=== PATIENT | female | born 1965 | race Caucasian/White ===

== ENCOUNTER 2017-01-05 16:38 | Emergency (ER) | payer OTHER ==
[~2017-01-05] VITALS: Ht 152.4 cm; Wt 124.6 kg
[~2017-01-05 16:38] MED LIST: ADVIN25050 INH; ATV5 PO; CELE50CA PO; CRDCD120 PO; VNTHFA/IN INH
[2017-01-05 16:47] VITALS: TEMP 37; Ht 152.4 cm; Wt 124.6 kg
[2017-01-05] MEDS ORDERED: ALUMINUM/MAGNESIUM SUSP 30 ML UDC PO STA (17:48)
[2017-01-05] MEDS ORDERED: ATV5X PO (18:00)
[2017-01-05] MEDS ORDERED: DILT60CA PO (18:00)
--- NOTE | 2017-01-05 18:15 | EMERGENCY ROOM VISIT NOTE ---
History Report prepared by [place]: Kaylyn Mccallum Under the Supervision of: Dr. Lalit Recinos M.D. First contact with patient: 17:39 Chief Complaint: HYPERTENSION Stated Complaint: HIGH BLOOD PRESSURE, INDIGESTION AND HEADACHE History of Present Illness The patient is a 51 year old female who presents to the Emergency Room with complaints of waxing and waning mid-chest pressure starting yesterday. She describes it to be similar to indigestion symptoms. She had the onset of her pain about 3 hours after she ate a cup of vegetable soup. She continues to have the pressure today but has only had a bagel today. She took Rolaids without relief. She denies any changes in her symptoms with any activity. At its worst, she rates a symptom intensity of 7/10. She currently rates a symptom intensity of 1/10. She reports some heavy breathing but denies shortness of breath. She had some nausea yesterday but denies vomiting. The patient also complains of hypertension. Yesterday, her blood pressure was 176/116. She has a history of hypertension. Her diltiazem dose was reduced in November. Her blood pressure was normal this morning. She currently also complains of a headache. She was referred to the Emergency Room by her PCP. She has a family history of heart disease and hypertension. She denies any history of frequent indigestion. She had a resting stress test in October with normal results. Source of History: patient Onset: yesterday Position: chest (mid) Symptom Intensity: 1/10 currently Quality: pressure Timing: waxes/wanes Modifying Factors (Relieving): other (Rolaids without relief) Associated Symptoms: + headache, + nausea, No SOB, No vomiting Review of Systems See HPI for pertinent positives & negatives. A total of 10 systems reviewed and were otherwise negative. Past Medical & Surgical Medical Problems: (1) Asthma (2) Kidney disease (3) Paroxysmal SVT (supraventricular tachycardia) (4) possibel NSTEMI, HTN Surgical Problems: (1) S/P hysterectomy Family History Patient reports no known family medical history. Social History Smoking Status: Never Smoker Alcohol Use: none Drug Use: none Marital Status: Housing Status: lives with significant other Occupation Status: employed Current/Historical Medications Scheduled Diltiazem Hcl (Diltiazem Hcl Er), 60 MG PO QAM Pantoprazole (Protonix), 20 MG PO DAILY Ranitidine (Zantac), 150 MG PO BID Scheduled PRN Albuterol Hfa (Ventolin Hfa), 2-4 PUFFS INH Q6H PRN for SOB/Wheezing Lorazepam (Lorazepam), 0.5 MG PO TID PRN for Anxiety Allergies Coded Allergies: Sulfa Drugs (Verified Allergy, Unknown, UNKNOWN - SINCE 1979, 01/05/17) Physical Exam Vital Signs Date Time Temp Pulse Resp B/P Pulse Ox O2 Delivery O2 Flow Rate FiO2 01/05/17 19:56 80 20 152/104 93 Room Air 01/05/17 18:33 89 21 156/92 99 Room Air 01/05/17 18:31 99 Room Air 01/05/17 16:47 37.0 89 18 134/80 94 Room Air Physical Exam GENERAL: Patient is in no acute distress. HEENT: No acute trauma, normocephalic atraumatic, mucous membranes moist, no nasal congestion, no scleral icterus. NECK: No stridor, no adenopathy, no meningismus, trachea is midline. LUNGS: Clear to auscultation bilaterally, no wheeze, no rhonchi, breath sounds equal. HEART: Without murmurs gallops or rubs, regular rate and rhythm. ABDOMEN: Soft, tenderness in the epigastrium and right upper quadrant, bowel sounds positive, no hernias, no peritonitis. EXTREMITIES: No cyanosis or edema, full range of motion of all the joints without pain or difficulty, no signs for acute trauma. NEUROLOGIC: Oriented x 3, no acute motor or sensory deficits, no focal weakness. SKIN: No rash, no jaundice, no diaphoresis. Medical Decision & Procedures ER Provider Diagnostic Interpretation: X ray results and stated below per my interpretation and radiologist interpretation. US results and stated below per my review and radiologist interpretation: ABDOMINAL ULTRASOUND, RIGHT UPPER QUADRANT HISTORY: Epigastric abdominal pain.. COMPARISON: Abdomen and pelvis CT 07/10/2007. FINDINGS: Pancreas: The pancreatic tail is obscured by overlying bowel gas. The remaining portions of the pancreas are within normal limits. Liver: Unremarkable. Gallbladder: No gallbladder wall thickening. No gallstones. CBD: 4 mm. Right kidney: No hydronephrosis. IMPRESSION: No significant abnormality identified within the right upper quadrant. Electronically signed by: Chino Casper M.D. 01/05/2017 7:14 PM Dictated Date/Time: 01/05/2017 7:13 PM CHEST ONE VIEW PORTABLE HISTORY: Atypical CHEST PAIN COMPARISON: Chest 10/18/2016. FINDINGS: The cardiac silhouette is mildly enlarged. The lungs are clear. No pleural effusions. No pneumothorax. No acute rib fractures. IMPRESSION: Mild cardiomegaly. Electronically signed by: Chino Casper M.D. 01/05/2017 6:38 PM Dictated Date/Time: 01/05/2017 6:38 PM Laboratory Results 01/05/17 18:20 01/05/17 18:20 Test 01/05/17 18:20 Red Blood Count 4.23 M/uL (4.2-5.4) Mean Corpuscular Volume 86.3 fL (80-100) Mean Corpuscular Hemoglobin 30.0 pg (25-34) Mean Corpuscular Hemoglobin Concent 34.8 g/dl (32-36) RDW Standard Deviation 41.9 fL (36.4-46.3) RDW Coefficient of Variation 13.3 % (11.5-14.5) Mean Platelet Volume 10.4 fL (7.4-10.4) Prothrombin Time 10.1 SECONDS (9.0-12.0) Prothromb Time International Ratio 0.9 (0.9-1.1) Activated Partial Thromboplast Time 27.3 SECONDS (21.0-31.0) Partial Thromboplastin Ratio 1.1 Anion Gap 8.0 mmol/L (3-11) Est Creatinine Clear Calc Drug Dose 89.0 ml/min Estimated GFR () 85.8 Estimated GFR (Non- 74.0 BUN/Creatinine Ratio 13.9 (10-20) Calcium Level 8.8 mg/dl (8.5-10.1) Total Bilirubin 0.3 mg/dl (0.2-1) Aspartate Amino Transf (AST/SGOT) 13 U/L (15-37) Alanine Aminotransferase (ALT/SGPT) 18 U/L (12-78) Alkaline Phosphatase 88 U/L (45-117) Total Creatine Kinase 61 U/L (26-192) Creatine Kinase MB 0.6 ng/ml (0.5-3.6) Creatine Kinase MB Ratio 1.0 (0-3.0) Troponin I < 0.015 ng/ml (0-0.045) Total Protein 7.3 gm/dl (6.4-8.2) Albumin 3.2 gm/dl (3.4-5.0) Globulin 4.1 gm/dl (2.5-4.0) Albumin/Globulin Ratio 0.8 (0.9-2) Lipase 181 U/L (73-393) Laboratory results reviewed by me. Medications Administered Medications (Trade) Dose Ordered Sig/Odalys Route Start Time Stop Time Status Last Admin Dose Admin Al Hydroxide/Mg Hydroxide (Maalox Susp) 30 ml NOW STAT PO 01/05/17 17:48 01/05/17 17:52 DC 01/05/17 18:35 30 ML ECG Indication: chest pain Rate (beats per minute): 87 Rhythm: normal sinus Findings: no acute ischemic change, no ectopy ED Course 1738: The patient was evaluated in room C05. A complete history and physical exam was performed. 1747: Maalox Susp 30 ml PO 1927: Reevaluated the patient. Discussed results and discharge instructions: She verbalized understanding and agreement. The patient is ready for discharge. 1942: Protonix Tab 40 mg PO, Ranitidine HCl 150 mg PO Medical Decision Differential diagnosis includes but is not limited to cardiac ischemia, angina, myocardial infarction, biliary colic, pancreatitis, musculoskeletal pain, aortic dissection, PE. There is no leukocytosis or concerning anemia. No significant electrolyte abnormality, kidney failure or hepatitis. There is no pancreatitis. Chest x- ray does not show pneumonia or CHF, some mild cardiomegaly was seen. EKG shows a normal sinus rhythm, no acute ischemia. Cardiac enzyme testing 1 is not consistent with acute cardiac injury. Gallbladder ultrasound shows no gallstones and no acute cholecystitis. The patient presents with some hypertension yesterday which seems to have resolved today. She's had some heartburn-like symptoms since eating yesterday. The pain is nonexertional, the pain comes and goes on its own. She had a negative stress test just a few months ago. She was seen by cardiology and it was felt that her symptoms were not secondary to coronary disease. The patient received oral Maalox with no real change in her symptoms. She was given oral Zantac and oral Protonix. The patient presents with atypical lower chest pain. She does have discomfort with palpation of the epigastrium. This all may be stomach related discomfort. I am going to place her on Zantac and Protonix. She will follow with her doctor this week for a repeat blood pressure check in the office and a repeat exam. She has agreed to return to this ER for worsening chest discomfort, she will return for any exertional chest pain or exertional dyspnea. She does feel comfortable with discharge. Impression Primary Impression: Central chest pain Additional Impression: Hypertension Scribe Attestation The scribe's documentation has been prepared under my direction and personally reviewed by me in its entirety. I confirm that the note above accurately reflects all work, treatment, procedures, and medical decision making performed by me. Departure Information Dispostion Home / Self-Care Prescriptions Pantoprazole (Protonix) 20 Mg Tab 20 MG PO DAILY, #30 TAB Prov: Lalit Recinos M.D. 01/05/17 Ranitidine (Zantac) 150 Mg Tab 150 MG PO BID for 14 Days, #28 TAB Prov: Lalit Recinos M.D. 01/05/17 Referrals Kaitlynn Fournier M.D. (PCP) Forms HOME CARE DOCUMENTATION FORM, IMPORTANT VISIT INFORMATION, WORK / SCHOOL INSTRUCTIONS Patient Instructions My [facility] [place] [facility] Additional Instructions start zantac 2x per day for 2 weeks use protonix daily for 1 month bland diet---crackers, soup, gatorade rest see reyes moreno this week---call in the am for an appt return for worsening symptoms or exertional symptoms as we discussed heart testing today was all ok Problem Qualifiers
[2017-01-05 18:31] VITALS: O2SAT 99
[2017-01-05 18:31] LABS: HEMATOCRIT 36.5 % (37-47); MEAN CELL VOLUME 86.3 fL (80-100); MEAN CORPUSCULAR HGB CONC 34.8 g/dl (32-36); MEAN PLATELET VOLUME 10.4 fL (7.4-10.4); PLATELET COUNT 249 K/uL (130-400); RED BLOOD COUNT 4.23 M/uL (4.2-5.4); WHITE BLOOD COUNT 9.54 K/uL (4.8-10.8)
--- NOTE | 2017-01-05 18:40 | DIAGNOSTIC IMAGING REPORT ---
CHEST ONE VIEW PORTABLE HISTORY: Atypical CHEST PAIN COMPARISON: Chest 10/18/2016. FINDINGS: The cardiac silhouette is mildly enlarged. The lungs are clear. No pleural effusions. No pneumothorax. No acute rib fractures. IMPRESSION: Mild cardiomegaly. Electronically signed by: Chino Casper M.D. 01/05/2017 6:38 PM Dictated Date/Time: 01/05/2017 6:38 PM
[2017-01-05 18:49] LABS: INR 0.9 (0.9-1.1); PARTIAL THROMBOPLASTIN RATIO 1.1; PROTHROMBIN TIME (PATIENT) 10.1 SECONDS (9.0-12.0)
[2017-01-05 18:50] LABS: ALT/SGPT 18 U/L (12-78); AST/SGOT 13 U/L (15-37); BLOOD UREA NITROGEN 12 mg/dl (7-18); BUN/CREATININE RATIO 13.9 (10-20); CALCIUM 8.8 mg/dl (8.5-10.1); CARBON DIOXIDE 28 mmol/L (21-32); CHLORIDE 106 mmol/L (98-107); CREATININE 0.89 mg/dl (0.60-1.20); GLUCOSE 85 mg/dl (70-99); POTASSIUM 4.1 mmol/L (3.5-5.1); SODIUM 142 mmol/L (136-145)
[2017-01-05 18:55] LABS: ALB/GLOB RATIO 0.8 (0.9-2); ALKALINE PHOSPHATASE 88 U/L (45-117)
--- NOTE | 2017-01-05 19:15 | DIAGNOSTIC IMAGING REPORT ---
ABDOMINAL ULTRASOUND, RIGHT UPPER QUADRANT HISTORY: Epigastric abdominal pain.. COMPARISON: Abdomen and pelvis CT 07/10/2007. FINDINGS: Pancreas: The pancreatic tail is obscured by overlying bowel gas. The remaining portions of the pancreas are within normal limits. Liver: Unremarkable. Gallbladder: No gallbladder wall thickening. No gallstones. CBD: 4 mm. Right kidney: No hydronephrosis. IMPRESSION: No significant abnormality identified within the right upper quadrant. Electronically signed by: Chino Casper M.D. 01/05/2017 7:14 PM Dictated Date/Time: 01/05/2017 7:13 PM
[2017-01-05] MEDS ORDERED: RANITIDINE HCL 150 MG TAB PO STA (19:43)
[2017-01-05] MEDS ORDERED: PANTOprazole SOD 40 MG TAB PO STA (19:43)
[2017-01-05] MEDS ORDERED: ZNTT/150 PO (19:47)
[2017-01-05] MEDS ORDERED: PRT/20 PO (19:47)
[2017-01-05 19:56] VITALS: BP 142/103; PULSE 80; O2SAT 93
== END 2017-01-05 20:05 | disposition home or self-care (01) ==
LOC: C.EDB 16:39 → C.EDC 20:05
DX: R07.9 Chest pain, unspecified (principal); I10 Essential (primary) hypertension; Z82.49 Family history of ischemic heart disease and other diseases of the circulatory system; J45.909 Unspecified asthma, uncomplicated; N28.9 Disorder of kidney and ureter, unspecified; I47.1 Supraventricular tachycardia; Z90.710 Acquired absence of both cervix and uterus; Z88.2 Allergy status to sulfonamides; I51.7 Cardiomegaly

== ENCOUNTER → 2017-03-22 | Outpatient (CLI) | payer OTHER ==
[~2017-03-22] MED LIST changes: -ADVIN25050 INH; -ATV5 PO; +ATV5X PO; -CELE50CA PO; -CRDCD120 PO; +DILT60CA PO; +PRT/20 PO
--- NOTE | 2017-03-23 06:32 | PAP/PSG TECHNICIAN REPORT ---
[facility] Pin Maker Polysomnogram Report Study name: None Report date: 03/23/2017 Study date: 03/22/2017 Referring Physician: Name: JAIME NGUYEN Interpreting Physician: John Garcia M.D. Date of : 1965 Pin Maker: Deborah Gay [facility]. Sex: Female Age: 51 Study Type: PSG PAP Weight: 270 lbs 16.5 in Height: 51 years, Height 5' 0" Neck Circum: BMI: 52.73 Medications: ATIVAN 0.5 MG, [id number] MG, IBUPROFEN 800 MG, PROAIR HFA Patient History 51 yr-old female here for a CPAP update study. She was found to be positive for CLAY with an AHI of 21. She was then placed on an auto CPAP machine since November. She is still having trouble with daytime sleepiness, snoring, and mask leak. She was given an AirFit F20 full face mask size small. The test was started on room air and 4 CMH2O. ETCO2 testing was not utilized during this study. Room 1 Parameters Monitored NPSG: E1-M2, E2-M1, Fp1-M2, Fp2-M1, F3-M2, F4-M2, F4-M1, C3-M2, C4-M2, C4-M1, O1-M2, O2-M2, O2-M1, T3-M2, T4-M1, P3-M2, P4-M1, CHIN1, CHIN2, HR, EKG, Legs, PFLOW, SNOR, FLOW, CFLOW, Tidal Volume, THOR, ABDO, SpO2, PLTH, CPRESS, ETCO2 Wave, ETCO2, pH Sleep Architecture Sleep Stages Time at Lights Off 10:41:40 PM STAGES Time (min.) TST (%) Time at Lights On 5:39:40 AM Wake 26.5 -- Total Recording Time (TRT) 418.00 min. N1 19.0 5 Total Sleep Period (TSP) 414.0 min. N2 261.0 67 Total Sleep Time (TST) 391.5min. N3 37.5 10 Awake Time 26.5 min. REM 74.0 19 Wake after Sleep Onset 22.5 min. Sleep Efficiency (SE) 94 % Sleep Onset Latency (MARYANNE) 4.0 min. Number of Stage 1 Shifts None Awakenings 15 Stage Changes 67 Number of REM periods 4 REM 74.0 19 REM Latency 112.0 min. NREM 317.5 81 Body Position Analysis Supine Right Left Side Prone Vertical Total Sleep Time (min.) 89.8 269.4 38.7 308.13 0.0 0.0 Total Sleep Time (%) 21% 69% 10% 79 0% N/A% Total Sleep Time REM (min.) 4.0 70.0 0.0 None 0.0 0.0 Total Sleep Time NREM (min.) 79.4 199.4 38.7 None 0.0 0.0 Intermittent Wake (min.) 6.4 19.1 1.0 None 0.0 0.0 Total Sleep Period (%) 22% None None None None None Arousals Myoclonus (PLM) * Events Count Index Events Count Index Spontaneous 23 4 Events Awake (PLMW) 17 38.5 Respiratory 3 0.8 Events Asleep w/ Arousal (PLMA) 1 0.2 PLM 1 0 Events Asleep w/o Arousal (PLMS) 11 1.7 Snoring 3 0 Total Asleep 12 1.8 Total 30 5 Total 29 4 Respiratory Analysis * CA OA MA CH H RERA Total Count 2 3 0 0 5 5 10 Index 0.3 0.5 0.0 0 0.8 1 2.3 Mean Duration 12.9 11.6 0.0 0.00 16.7 18.2 15.7 Longest Duration 15.1 11.6 0.0 0.00 0.0 22.9 26.7 Respiratory Event Summary Total Supine ~Supine Right Left Prone REM NREM Apneas Count 5 0 5 5 0 N/A 5 0 Index 0.8 0 1 1.1 0.0 N/A 4 0 Hypopneas (4% Desat) Count 5 0 5 5 0 N/A 3 2 Index 0.8 0.0 1 1.1 0.0 N/A 2.4 0.4 Apneas & All Hypopneas Count 10 0 10 10 0 N/A 8 2 Index 1.5 0 2 2 0 N/A 6.5 0.4 Respiratory Events (Automation Controls Specialist+All Hyp+RERA) Count 10 0 15 15 0 N/A 8 2 Index 2.3 0 3 3.3 0.0 N/A 7.3 1.1 Respiratory Related Arousal Count 3 0 5 5 0 N/A 1 4 Index 0.8 0 1 1 0 N/A 1 1 Snoring Analysis Supine Right Left Prone REM NREM Total Snore duration 39.9 min Snores count 1 1,589 1 N/A 131 1,460 1,591 Snore mean duration 1.5 Sec Snores index 1 354 2 N/A 106.2 275.9 243.8 TST with snoring (%) 10.2% Desaturation Event Summary: Minimum %SpO2 Event Count Mean/Min/Max Duration(sec.) Desaturation Index % Time In Bed > 90 19 34.4 / 9.5 / 59.8 3.1 88.5 86 - 90 1 9.0 / 9.0 / 9.0 1.3 11.5 81 - 85 0 N/A 0.0 0.0 76 - 80 0 N/A 0.0 0.0 71 - 75 0 N/A 0.0 0.0 66 - 70 0 N/A 0.0 0.0 61 - 65 0 N/A 0.0 0.0 56 - 60 0 N/A 0.0 0.0 51 - 55 0 N/A 0.0 0.0 < 50 0 N/A 0.0 0.0 Total REM NREM Awake <50% 0.0 min. 0.0 min. 0.0 min. 0.0 min. 51 - 60% 0.0 min. 0.0 min. 0.0 min. 0.0 min. 61 - 70% 0.0 min. 0.0 min. 0.0 min. 0.0 min. 71 - 80% 0.0 min. 0.0 min. 0.0 min. 0.0 min. 81 - 90% 48.0 min. 4.8 min. 41.6 min. 1.6 min. 91 - 100% 369.5 min. 69.2 min. 275.9 min. 24.4 min. Average 92 93 92 93 Minimum SpO2 85 85 88 89 Desaturation Event Index 2.9 5.7 1.5 11.3 # Desat. Events below 89% 5 4 1 N/A Time(%) with Saturation below 89% 0.3 0.3 0.0 0.0 Time(min.) with Saturation below 89% 1.4 1.3 0.1 0.0 Time (mins) REM (mins) NREM (mins) % of TST SpO2 Below 90% 10 6 N4 1.4 SpO2 Below 88% 2 0 0 0 Heart Rate Analysis Min (bpm) Max (bpm) Average (bpm) Awake 52 102 70 NREM 50 103 64 REM 50 87 64 Overall 50 103 64 Supplemental O2 Values Minimum O2 level: None Value Start Time End Time Pin Maker Comments Ms. Nguyen slept in the right, left, and supine positions. No cardiac arrhythmias or PLMs noted. No bruxism noted. CPAP was initiated at +4 CMH2O and up-titrated to a level of +8 CMH2O, Cflex 2 which nearly eliminated all respiratory events and snoring. She used her own AirFit F20 full face mask size small from [employer] during the titration She did not wake up to use the restroom during the night. Ms. Nguyen stated that she slept the same as usual. The final report will be interpreted and signed by a sleep physician. The completed physician report will then be placed in the patient medical record. Therapy Event: Therapy (cm H20) 4 5 6 7 8 Total Time at Pressure (min.) 33.4 75.7 197.7 16.3 95.0 TST at Pressure (min.) 29.4 73.7 185.2 16.3 87.0 # Periods 1 1 1 1 1 Sleep Onset (min.) 4.0 0.0 0.0 0.0 0.0 REM Onset (min.) N/A N/A 7.0 4.3 0.0 Sleep Efficiency % 88 97 93 100 91 Wakefulness (%) 12.0 2.6 6.3 0.0 8.4 Wakefulness (min.) 4.0 2.0 12.5 0.0 8.0 NREM 1 (%) 4.5 4.6 4.8 0.0 4.7 NREM 1 (min.) 1.5 3.5 9.5 0.0 4.5 NREM 2 (%) 53.5 56.4 76.5 26.5 47.3 NREM 2 (min.) 17.9 42.6 151.2 4.3 45.0 NREM 3 (%) 30.0 36.3 0.0 0.0 0.0 NREM 3 (min.) 10.0 27.5 0.0 0.0 0.0 REM (%) 0.0 0.0 12.4 73.5 39.5 REM (min.) 0.0 0.0 24.5 12.0 37.5 # Arousals 4 4 13 4 5 Arousal Index 8.2 3.3 4.2 14.8 3.4 # Snore 255 801 377 75 83 Snore Index 521.2 652.5 122.2 276.7 57.2 AHI 2.0 0.0 0.0 29.5 0.7 AHI Supine N/A 0.0 0.0 N/A 0.0 AHI Non-Supine 2.0 0.0 0.0 29.5 0.7 NREM AHI 2.0 0.0 0.0 13.9 0.0 REM AHI N/A N/A 0.0 35.1 1.6 RDI 2.0 2.4 0.3 33.2 0.7 # Obstructive 0 0 0 3 0 # Central Ap 0 0 0 1 1 # Mixed 0 0 0 0 0 # Hypopneas 1 0 0 4 0 RERAS 0 3 1 1 0 Total Respiratory Events 1 3 1 9 1 Time Below SpO2 89.00% (min.) 0.0 0.0 0.0 1.4 0.0 Mean NREM SpO2 (%) 92 92 91 91 92 Mean REM SpO2 (%) N/A N/A 92 91 94 Mean Sleep SpO2 (%) 92 92 91 91 93 Min NREM SpO2 (%) 89 90 89 88 89 Min REM SpO2 (%) N/A N/A 90 85 90 Position Supine (min.) 0.0 0.0 78.1 0.0 5.3 Position Non-supine (min.) 29.4 73.6 107.1 16.3 81.8 LM Index Sleep 0.0 4.9 1.3 3.7 0.7 LM Index NREM 0.0 4.9 1.1 0.0 0.0 LM Index REM N/A N/A 2.4 5.0 1.6 Mean Heart Rate (bpm) 67 72 63 66 59 Min Heart Rate (bpm) 53 59 50 51 50
--- NOTE | 2017-03-25 09:11 | POLYSOMNOGRAPH REPORT ---
CLINICAL DATA: A 51-year-old female with BMI of [address] Fournier for a CPAP study. She had a sleep study which showed moderate CLAY with an AHI of 21. She then was placed on auto CPAP but continues to have difficulty with daytime sleepiness, snoring, and mask leakage. She used an AirFit F20 full facemask size small. SLEEP ARCHITECTURE: Total sleep period was 414 minutes. Total sleep time was 391.5 minutes divided between 317.5 minutes of non-REM sleep and 74 minutes of REM sleep. Sleep onset latency was 4 minutes. REM latency was 112 minutes. Sleep efficiency was 94%. Wake after sleep onset was 22.5 minutes. Sleep consisted of stage N1 5%, N2 67%, N3 10%, REM 19%. AROUSAL DATA: Thirty arousals were recorded for an index of 5 per hour. PLM DATA: Twelve limb movements during sleep were noted for an index of 1.8 per hour. RESPIRATORY DATA: The AHI was 1.5. There were 2 central and 3 obstructive apneic episodes. The longest duration of apnea was 15.1 seconds. There were 5 hypopneic episodes; the mean duration of hypopnea was 16.7 seconds. OXIMETRY DATA: Transient nocturnal hypoxemia was seen. Oxygen rolly was 85% during REM. The mean saturation was 92%. Time below 88% was 2 minutes. EKG: Heart ranged from 50-103 beats per minute. No arrhythmias were noted. SECONDARY MARKET MANAGER'S COMMENTS AND TREATMENT SUMMARY: The patient slept in the right, left, and supine positions. The patient was titrated up to a final pressure setting of 8 cm of water pressure CPAP. At that level, she had an AHI of 0.7 after sleeping for 87 minutes. IMPRESSION: Moderate obstructive sleep apnea/hypopnea corrected with CPAP 8 cm of water pressure, C-flex setting 2, AirFit F20 full facemask size small from [facility] with a residual AHI of 0.7. RECOMMENDATIONS: The patient's CPAP should be set at 8 cm of water pressure C-Flex setting #2. She should have followup within 90 days to document efficacy and compliance. [facility]
== END | disposition home or self-care (01) ==
LOC: C.NEUR 20:00
PROVIDERS: ATTEND Internal Medicine Pulmonary Disease
DX: G47.33 Obstructive sleep apnea (adult) (pediatric) (principal)

== ENCOUNTER → 2017-05-30 | Outpatient (CLI) | payer OTHER ==
[~2017-05-30] VITALS: Ht 152.4 cm; Wt 256.1 kg
[2017-05-30 14:13] VITALS: BP 127/88; PULSE 73; Ht 152.4 cm; Wt 256.1 kg
== END | disposition home or self-care (01) ==
LOC: C.NEUR 12:31
PROVIDERS: ATTEND Physician Assistant
DX: G47.30 Sleep apnea, unspecified (principal)

== ENCOUNTER → 2017-09-01 | Outpatient (CLI) | payer OTHER ==
[~2017-09-01] VITALS: Ht 152.4 cm; Wt 116.7 kg
[~2017-09-01] MED LIST changes: -PRT/20 PO
[2017-09-01 14:29] VITALS: BP 142/82; PULSE 83; Ht 152.4 cm; Wt 116.7 kg
== END | disposition home or self-care (01) ==
LOC: C.NEUR 14:15
PROVIDERS: ATTEND Physician Assistant
DX: G47.30 Sleep apnea, unspecified (principal)